=== PATIENT | male | born 1935 | race Caucasian/White ===

== ENCOUNTER 2016-04-24 10:05 | Day surgery (SDC) | payer MEDICARE ==
[~2016-04-24] VITALS: Ht 174 cm; Wt 75.0 kg
[~2016-04-24 10:05] MED LIST: ALBU8.5H2 INHALATION; ASPI-973 PO; CITA40TA13 PO; FLUT15.88 NS; LAMO200T2 PO; LISI40TA PO; Lactated Ringer's 1,000 ML IV ONE; OMEP20CA11 PO; TAMS0.4C98 PO
[2016-04-24] MEDS ORDERED: Propofol 10,000 mCg/mL 20 mL Inj ONE (10:06)
[2016-04-24 10:56] VITALS: BP 128/78; PULSE 86; RESP 17; O2SAT 98
[2016-04-24] MEDS ORDERED: MetoCLOpramide 5 mg/mL 2 mL Inj IVPUSH PRN (11:00)
[2016-04-24] MEDS ORDERED: Lactated Ringer's 1,000 ML IV SCH (11:00)
[2016-04-24] MEDS ORDERED: Ondansetron 2 mg/mL 2 mL Inj IVPUSH PRN (11:00)
[2016-04-24 11:19] VITALS: BP 101/60; PULSE 73; RESP 14; O2SAT 91
[2016-04-24 11:32] VITALS: BP 94/55; PULSE 69; RESP 16; O2SAT 90
[2016-04-24 11:34] VITALS: BP 105/61; PULSE 75; RESP 16; O2SAT 97
--- NOTE | 2016-04-24 11:45 | ENDO ---
[address] [address] ENDOSCOPY PROCEDURE PATIENT: NORMA RIGGS : 1935 MR#: [id number] ADMIT: 04/24/2016 JOB ID: [id number] DATE: 04/24/2016 TYPE OF OPERATION: Colonoscopy. PREOPERATIVE DIAGNOSIS(ES): History of colon polyps. POSTOPERATIVE DIAGNOSIS(ES): Small internal hemorrhoids. ANESTHESIA: Monitored anesthesia care. COMPLICATIONS: None. BLOOD LOSS: Minimal. DESCRIPTION OF PROCEDURE: After risks and benefits were explained to the patient, informed consent was obtained. After anesthesia administered, colonoscope was then inserted from the rectum to the cecum. Mucosa carefully examined. Prep of the patient was excellent. After procedure was done, the scope was withdrawn and the procedure terminated. FINDINGS: Upon inspection of the anus, no masses, hemorrhoids, ulcers, fissures are seen. Throughout the entire examination, there were no polyps, masses or lesions. Retroflexion showed small internal hemorrhoids. IMPRESSION: Small internal hemorrhoids. RECOMMENDATIONS: 1. Stool softener as needed. 2. Repeat colonoscopy five years given history of colon polyps.
--- NOTE | 2016-04-24 15:40 | PCM.ANEP1 ---
Post Anesthesia Phase 1 PACU Phase 1 Assessment Vital Signs Vital Signs Date Time Temp Pulse Resp B/P Pulse Ox O2 Delivery O2 Flow Rate FiO2 04/24/16 11:34 75 16 105/61 97 Room Air 04/24/16 11:32 69 16 94/55 90 Room Air 04/24/16 11:19 36.5 73 14 101/60 91 Room Air 04/24/16 10:56 37.2 86 17 128/78 98 Room Air Anesthetic Administered: MAC Level of Alertness: Awake, talking [place]'s with Equal Strength: Yes Pain: No Nausea or Vomiting: No Oxygen Delivery: Room Air Lungs: Clear to Auscultation, Normal Air Movement Dermatome Level: Full Sensation Chester Rodriguez MD Apr 24, 2016 15:40
--- NOTE | 2016-04-24 15:40 | PCM.ANEP2 ---
Post Anesthesia Evaluation ASA/CMS Post Anesthesia VS in Patient's Normal Range?: Yes Resp Stable; Airway Patent?: Yes CV Function & Hydration Stable: Yes Mental Status Recovered?: Yes Pain control Satisfactory?: Yes N/V Control Satisfactory?: Yes Chester Rodriguez MD Apr 24, 2016 15:40
--- NOTE | 2016-04-24 15:40 | PCM.HPANE ---
Patient Data Surgeon Admitting Provider: Attending Provider:Shahbaz Keys MD Primary Care Physician:Shukri Pearson MD Other Provider:[facility] Reason for Visit Phx Colon Polyps Ht/WT & BMI Body Mass Index Allergies Coded Allergies: No Known Drug Allergies (Verified Allergy, Unknown, 04/23/16) Medications Reported Medications Tamsulosin (Flomax)0.4 Mg Capsule0.4 Mg PO DAILY Ref 0 04/23/16 Albuterol HFA (Proair HFA)8.5 Gm Hfa.aer.ad2 Puffs INHALATION Q4H #1 INHALER 04/23/16 Omeprazole 20 Mg Capsule.dr20 Mg PO DAILY Ref 0 04/23/16 Lisinopril 40 Mg Whofmy39 Mg PO DAILY 30 Days Ref 0 04/23/16 Lamotrigine 200 Mg [id number] Mg PO BID Ref 0 04/23/16 Fluticasone Propionate 50 Mcg/Actuation [place].susp15.8 Ml NS DAILY 04/23/16 Citalopram 40 Mg Pustei20 Mg PO DAILY 30 Days Ref 0 04/23/16 Aspirin 81 Mg Iodesp78 Mg PO DAILY Ref 0 04/23/16 Stop/Bang Risk Assessment Category Category 1A: Patient has history of documented sleep apnea, and HAS NOT received any narcotic, sedative or anesthesia administration during this stay. Category 1B: Patient has history of documented sleep apnea, and HAS received any narcotic , sedative or anesthesia administration during this stay Category 2: Patient has SUSPECTED Obstructive Sleep Apnea, and HAS received any narcotic , sedative or anesthesia administration during this stay. Category 3: Patient has SUSPECTED Obstructive Sleep Apnea and HAS NOT received narcotic, sedative or anesthesia administration during this stay. Category 4: Outpatient in Procedural Areas with known sleep apnea or who screen positive for High Risk via the STOP/BANG questionnaire. Exam Exam General Appearance: Alert, Oriented X3, Cooperative, No Acute Distress HEENT/AIRWAY: MP 2 Lungs: Clear to Auscultation, Normal Air Movement Heart: Exam Unremarkable, Regular Rate/Rhythm, No Murmurs/Rubs/Gallops Plan Impression Patient chart reviewed, patient interviewed and anesthestic plan with risks, benefits, and alternatives discussed, and informed consent obtained. NPO Status: > 8hrs ASA Physical Status: ASA2 Mod Systemic Disease Anesthetic Plan: MAC Bene/Risks/Altern/Consents: Yes HP Complete Prior to Induction: Yes Chester Rodriguez MD Apr 24, 2016 07:30
== END 2016-04-24 23:59 | disposition home or self-care (01) ==
LOC: END 10:05
PROVIDERS: ATTEND Internal Medicine Gastroenterology
DX: Z12.11 Encounter for screening for malignant neoplasm of colon (principal); Z86.010 Personal history of colon polyps; K64.8 Other hemorrhoids; G47.33 Obstructive sleep apnea (adult) (pediatric); I10 Essential (primary) hypertension; G40.909 Epilepsy, unspecified, not intractable, without status epilepticus; N40.0 Benign prostatic hyperplasia without lower urinary tract symptoms; K21.9 Gastro-esophageal reflux disease without esophagitis; Z79.82 Long term (current) use of aspirin
CPT/HCPCS: G0105; J7120